=== PATIENT | female | born 1950 | race African-American/Black ===

== ENCOUNTER → 2021-09-17 | Day surgery (SDC) | payer OTHER ==
[~2021-09-17] MED LIST: ALLEGRA ALLERGY60 MG; ZANTAC 150MG T150 MG
== END | disposition home or self-care (01) ==
LOC: CAT 09:11
PROVIDERS: ATTEND Family Medicine
DX: Z13.6 Encounter for screening for cardiovascular disorders (principal); I25.10 Atherosclerotic heart disease of native coronary artery without angina pectoris